=== PATIENT | female | born 1990 | race Caucasian/White ===

== ENCOUNTER 2019-05-22 15:12 | Inpatient (IN) | payer OTHER ==
[~2019-05-22] VITALS: Ht 152.4 cm; Wt 86.3 kg
[2019-05-22 15:33] VITALS: BP 130/71
[2019-05-22] MEDS ORDERED: PRENTAB9 PO (15:37)
[2019-05-22] MEDS ORDERED: TERBUTALINE SULFATE 1 MG/ML VIAL (J3105) SC ONE (15:45)
[2019-05-22] MEDS ORDERED: LACTATED RINGER'S 1000 ML IV ONE (15:45)
[2019-05-22] MEDS: LR 1,000 ML IV SCH ×2 (15:56→18:21)
[2019-05-22 16:27] LABS: HEMATOCRIT 34.7 % (36.0-47.0); HEMOGLOBIN 11.5 g/dl (12.0-15.5); MEAN CORPUSCULAR HEMOGLOBIN 29.9 pg (27.0-33.0); MEAN CORPUSCULAR HGB CONC 33.1 g/dl (32.0-36.5); MEAN CORPUSCULAR VOLUME 90.4 fl (80.0-96.0); PLATELET COUNT, AUTOMATED 196 10^3/uL (150-450); RED BLOOD COUNT 3.84 10^6/uL (4.00-5.40)
[2019-05-22 16:33] VITALS: BP 132/72
[2019-05-22] MEDS ORDERED: BICITRA 30ML SOLN UDC PO ONE (18:00)
[2019-05-22] MEDS ORDERED: ceFAZolin SOD 2 GM in IV 1 EA IV ONE (18:00)
[2019-05-22 18:54] VITALS: BP 143/73
[2019-05-22] MEDS ORDERED: MORPHINE PRES-FREE INJ 10 MG/10 ML VIAL (J2274) As Ordered ONE (19:37)
[2019-05-22] MEDS ORDERED: ONDANSETRON 4MG/2ML VIAL (J2405) As Ordered ONE (19:38)
[2019-05-22] MEDS ORDERED: OXYTOCIN INJ 10 UNITS/ML VIAL (J2590) As Ordered ONE (19:38)
[2019-05-22] MEDS ORDERED: dexameTHASONE 4 MG/ML 1ML VIAL (J1100) As Ordered ONE (19:38)
--- NOTE | 2019-05-22 20:04 | HPEPDOC ---
Obstetrical History & Physical General Date of Admission May 22, 2019 at 17:57 History of Present Illness Dede is a 29yo with SIUP at 38w1d by lmp c/w 9wk u/s who presented to L&D for ECV after being counseled at clinic appt earlier for persistent breech presentation. ECV failed, and patient desired to proceed with PLTCS today rather than coming back at a later date. Delivery is indicated at this gestational age for her because she has GHTN based on persistent mild range bp's. Recent pre-E labs were wnl, 24hr urine protein resulted "BARREL LOADER" because protein was so low. She has had no regular ctx/LOF/vaginal bleeding. She feels good movement. ECV procedure Note: Dr. Solorio and I attempted bedside ECV with both forward and backward roll after patient received 0.25mg SC Terbutaline and had reactive NST. She has posterior placenta and LEANNE is 13cm. Patient tolerated well, but fetus would not move past mid-abdomen and would immediately go back to original position when pressure was released. We attempted 3 times total, ultrasounding between each attempt to ensure adequate heart rate. After these attempts, I discussed with patient that we were unlikely to succeed and we then abandoned our attempts. I gave her and her time to consider having PLTCS today vs going home and returning next week, but she desired surgery today since she had already been NPO and had IV placed/labs drawn. Chief Complaint: section Information Provided By: Patient Care Care: Good Care Dating Final EDC: Jun 04, 2019 Final EDC by: LMP, 1st trimester (US) Antepartum Course Diagnos(e)s GHTN, overweight (starting BMI 27) with excessive weight gain (38lb), breech presentation Height (inches): 63 Pre- weight (lbs.): 152 Admission Weight (lbs.): 190 Change in Weight (lbs.): 38 Past Medical History Past Obstetrical History : Past Obstetrical History: Primgravida ACCESS SPECIALIST History: No pertinent history Past Medical History Medical History overweight (starting BMI 27) Surgical History: Humphrey teeth Family History Significant Family History: No pertinent family hx Social History Marital Status: Family situation: Spouse/partner home Psychosocial History: No pertinent psych hx * Smoker: non-smoker Alcohol: Denies Drugs: denies Imunizations Tdap status: current Influenza Status: current Allergies Coded Allergies: No Known Allergies (Unverified , 05/22/19) Medications Scheduled No.137/Iron/Folic Acd ( Vitamin Tablet) 1 Each Tablet, 1 TAB PO DAILY Physical Examination Physical Examination GENERAL: Alert and oriented times three. ABDOMEN: Gravid and non-tender to touch. FETUS: Is desire breech by TAUS EXTREMITIES: No edema of BLE Vital Signs/I&O Vital Signs Date Time Temp Pulse Resp B/P (MAP) Pulse Ox O2 Delivery O2 Flow Rate FiO2 05/22/19 18:54 98.7 73 20 143/73 (96) 99 Room Air Laboratory Data 24H LABS Laboratory Tests 2 05/22/19 16:11: Nucleated Red Blood Cells % (auto) 0.0, Syphilis Serology NONREACTIVE 05/22/19 18:11: Serology Scanned Report Hepatitis B Testing CBC/BMP Laboratory Tests 05/22/19 16:11 Pertinent Laboratoy Data Blood Type: O+ RBC Antibody Screen: Negative HIV: Negative Hepatitis B: Negative Hepatitis C: Unknown Rapid Plasma Reagin: Nonreactive Rubella: Immune Varicella: Immune Chlamydia/Gonorrhea: Negative Group B Streptococcus: Negative Cystic Fibrosis: Negative Glucose Tolerance Test: 127 Anatomy Ultrasound Ultrasound Date: Jan 22, 2019 Placenta Location: Posterior Normal Anatomy: Yes Placenta Previa: No Steroid Therapy Steroid Therapy: No Vaginal Examination Presentation: Breech presentation Assessment Heart Rate (FHR): 140 Variability: Moderate Accelerations: Positive Decelerations: None Tocometer Contractions: Yes Frequency: irregular Strength: palpated as mild Assessment/Plan Assessment Dede is a 29yo with SIUP at 38w1d by lmp c/w 9wk u/s with GHTN and persistent breech presentation having failed ECV, with PLTCS indicated. She has had a Cat I FHRT, irregular ctx. Normotensive to mild range bp's. course/PMhx significant for: GHTN, overweight (starting BMI 27) with excessive weight gain (38lb), breech presentation Plan Admit and orient. Counseled and consented for ECV and then PLTCS and blood transfusion. NPO prior to surgery Group B Streptococcus (GBS) negative Labs and intravenous (IV) per unit protocol. Lactated Ringers (LR): Bolus 500 mL, then at 125 mL/hr. Anceph 2g IV pre-op as well as PO Bicitra Arteaga catheter, clip-prep, SCDs all in the OR Anesthesia and nursing team all aware of plan and will proceed when the OR is ready MD Ana Winston Katrina D MD May 22, 2019 19:06
[2019-05-22] MEDS ORDERED: ONDANSETRON 4MG/2ML VIAL (J2405) IV PRN ×2 (20:38→22:45)
[2019-05-22] MEDS ORDERED: diphenhydrAMINE INJ 50MG/ML VIAL (J1200) IV PRN (20:38)
[2019-05-22] MEDS ORDERED: NALBUPHINE HCL 10 MG/ML AMP (J2300) IV PRN (20:38)
[2019-05-22] MEDS ORDERED: NALOXONE INJ 0.4 MG/1 ML VIAL (J2310) IV PRN ×2 (20:38)
[2019-05-22] MEDS ORDERED: METOCLOPRAMIDE INJ 10MG/2ML VIAL (J2765) IV PRN ×2 (20:38→22:45)
[2019-05-22] MEDS ORDERED: PHENYLephrine HCL 500 MCG/5 ML (100MCG/ML) SYRINGE (J2370) As Ordered ONE (20:46)
[2019-05-22] MEDS ORDERED: ePHEDrine SULFATE 25 MG/5 ML(5MG/ML) SYRINGE As Ordered ONE (20:46)
[2019-05-22 21:47] LABS: CORD GAS ABE A -2.9; CORD GAS O2 SAT A 29.1 %; CORD GAS PCO2 A 64.6 mmHg; CORD GAS PH A 7.222 UNITS; CORD GAS PO2 A 16.5 mmHg; CORD GAS SBC A 20.6 MEQ/L; CORD GAS TCO2 A 27.9 MEQ/L
[2019-05-22 21:48] LABS: CORD GAS ABE V -3.1; CORD GAS HCO3 V 22.3 MEQ/L; CORD GAS O2 SAT V 80.9 %; CORD GAS PCO2 V 41.2 mmHg; CORD GAS PH V 7.351 UNITS; CORD GAS SBC V 21.5 MEQ/L; CORD GAS TCO2 V 23.6 MEQ/L
[2019-05-22] MEDS ORDERED: LR 1,000 ML IV SCH (22:45)
[2019-05-22] MEDS ORDERED: PERCOCET 5MG/325MG TAB PO PRN (22:45)
[2019-05-22] MEDS ORDERED: fentaNYL 100 MCG/2 ML INJECTION (J3010) IV PRN (22:45)
[2019-05-22] MEDS ORDERED: PERCOCET 5MG/325MG TAB As Ordered ONE (23:35)
[2019-05-23] VITALS (9 sets, daily range): BP systolic 121–138; BP diastolic 67–89
[2019-05-23] MEDS ORDERED: MEASLES,MUMPS,RUBELLA VACCINE INJ (MMR-II) (90707) SC SCH (00:45)
[2019-05-23] MEDS ORDERED: PERCOCET 5MG/325MG TAB PO PRN (00:45)
[2019-05-23] MEDS ORDERED: miSOPROStol 200 MCG TAB (S0191) PR ONE (00:45)
[2019-05-23] MEDS ORDERED: RHOGAM 300 MCG (1500 IU) INJ (J2790) IM SCH (00:45)
[2019-05-23] MEDS: KETOROLAC 30 MG/ML VIAL (J1885) IV SCH ×5 (01:27→18:48)
[2019-05-23] MEDS: PRENATAL VITAMINS CHEWABLE TABLET PO SCH (08:21)
--- NOTE | 2019-05-23 12:32 | IPNPDOC ---
Progress Note Date of Service: May 23, 2019 Day#: 1 Progress Note POD/PPD 1 SUBJECT: Dede is a 29yo s/p uncomplicated PLTCS at 2109 on 05/22/2019 at 38w1d for persistent breech presentation after failed ECV in the setting of GHTN (having recent negative workup for pre-E), doing well day # 1. EBL was 500ml. She has been ambulating without dizziness/lightheadedness, recently had kirby catheter removed and she has been tolerating regular diet. Breast feeding well. Lochia is minimal. Pain so far is well controlled. No f/c/n/v/CP/SOB. OBJECTIVE: VITAL SIGNS: Within normal limits, afebrile. Alert and oriented times three. Abdomen: Fundus firm at U-2. Soft, appropriately tender to palpation with NO rebound/guarding. Pfannensteil incision is covered by clean/dry dressing. Extremities: SCDs on and functioning, no pain with palpation of calves UOP > 100ml/hr Labs: pre-op H/H: 11.5/34.7 ASSESSMENT: Dede is a 29yo s/p uncomplicated PLTCS at 2109 on 05/22/2019 at 38w1d for persistent breech presentation after failed ECV in the setting of GHTN (having recent negative workup for pre-E), doing well day # 1. Vitals within normal limits, afebrile, hemodynamically stable with no evidence of infection. No s/sx of pre-E. PLAN: 1. Routine and post-op care 2. Toradol (then Motrin) and prn percocet for pain. 3. Regular diet 4. Encourage breast feeding and ambulation as well as use of IS 5. CBC tomorrow morning 6. Kirby removed this morning, awaiting 4hr due to void 7. Vitals q4hr 8. Ok to shower later this evening, pt to remove outer dressing but leave steri strips in place 9. Dr. Degroot is aware that baby has not yet opened her left eye and has a "sunken" appearance- he will be evaluating the baby this morning Dr. Kath Perez MD VS, I&O, 24H, Fishbone Vital Signs/I&O Vital Signs Date Time Temp Pulse Resp B/P (MAP) Pulse Ox O2 Delivery O2 Flow Rate FiO2 05/23/19 10:00 98.3 73 20 128/67 (87) 98 Room Air I&O- Last 24 Hours up to 6 AM 05/23/19 06:00 Intake Total 2750 ml Output Total 2950 ml Balance -200 ml Laboratory Data 24H LABS Laboratory Tests 2 05/22/19 16:11: Nucleated Red Blood Cells % (auto) 0.0, Syphilis Serology NONREACTIVE 05/22/19 18:11: Serology Scanned Report Hepatitis B Testing 05/22/19 21:13: Cord Arterial Blood pH 7.222, Cord Arterial Blood PCO2 64.6, Cord Arterial Blood PO2 16.5, Cord Arterial Blood HCO3 26.0, Cord Arterial Blood Total CO2 27.9, Cord Arterial Blood Base Excess -2.9, Cord Arterial Base Excess (Standard 20.6, Cord Arterial Bld Oxygen Saturation 29.1, Cord Venous Blood pH 7.351, Cord Venous Blood PCO2 41.2, Cord Venous Blood PO2 38.0, Cord Venous Blood HCO3 22.3, Cord Venous Blood Total CO2 23.6, Cord Venous Base Excess (Actual) -3.1, Cord Venous Base Excess (Standard) 21.5, Cord Venous Blood Oxygen Saturation 80.9 CBC/BMP Laboratory Tests 05/22/19 16:11 Kath Perez MD May 23, 2019 12:32
[2019-05-23] MEDS: PERCOCET 5MG/325MG TAB PO PRN (18:06)
[2019-05-23] MEDS: IBUPROFEN 800 MG TAB PO SCH (20:52)
[2019-05-23] MEDS: DOCUSATE SODIUM 100 MG CAP PO SCH (23:57)
[2019-05-24] MEDS: PERCOCET 5MG/325MG TAB PO PRN ×4 (02:15→22:53)
[2019-05-24 02:24] VITALS: BP 129/78
[2019-05-24] MEDS: IBUPROFEN 800 MG TAB PO SCH ×3 (05:46→21:18)
[2019-05-24 05:59] VITALS: BP 133/81
[2019-05-24 07:48] LABS: HEMATOCRIT 34.4 % (36.0-47.0); HEMOGLOBIN 10.8 g/dl (12.0-15.5); MEAN CORPUSCULAR HEMOGLOBIN 29.3 pg (27.0-33.0); MEAN CORPUSCULAR HGB CONC 31.4 g/dl (32.0-36.5); MEAN CORPUSCULAR VOLUME 93.5 fl (80.0-96.0); PLATELET COUNT, AUTOMATED 202 10^3/uL (150-450); RED BLOOD COUNT 3.68 10^6/uL (4.00-5.40); WHITE BLOOD COUNT 13.4 10^3/uL (4.0-10.0)
[2019-05-24] MEDS: DOCUSATE SODIUM 100 MG CAP PO SCH ×2 (08:02→21:17)
[2019-05-24] MEDS: PRENATAL VITAMINS CHEWABLE TABLET PO SCH (08:03)
[2019-05-24 09:58] VITALS: BP 134/74
--- NOTE | 2019-05-24 10:10 | IPNPDOC ---
Text Note Date of Service The patient was seen on 05/24/19. NOTE Ms. Michelle is a 29 yo who is POD#2 s/p uncomplicated PLTCS on 22May2019 at ~2130 for breech presentation s/p failed ECV and GHTN at ~38 weeks gestation. No acute events over the last 24 hours. Ms. Michelle feels well this morning. Pain is well controlled, she is ambulating, voiding, and tolerating a regular diet. She has minimal lochia. Vitals - VSS, afebrile, normotensive, non tachycardic General - AAOX3, sitting up in chair and , NAD Abdomen - Fundus firm at U-2. No tenderness to palpation. Dressing in place over incision. Clean and dry. Extremities - No edema UO - appropriate Labs: Post op H/H stable Ms. Michelle is doing well and is making an appropriate / postoperative recovery. 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 Will order abdominal binder today and encourage IS use. Continue routine post op / care. Likely discharge home tomorrow. All questions answered. Mackenzie Pretty DO VS,Florentinobonpaco, I+O VS, Fishbone, I+O Laboratory Tests 05/24/19 07:27 Vital Signs Date Time Temp Pulse Resp B/P (MAP) Pulse Ox O2 Delivery O2 Flow Rate FiO2 05/24/19 09:58 98.4 73 18 134/74 (94) 98 05/24/19 03:02 Room Air I&O- Last 24 Hours up to 6 AM 05/24/19 06:00 Intake Total 1000 ml Output Total 600 ml Balance 400 ml MACKENZIE PRETTY DO May 24, 2019 10:10
[2019-05-24 14:00] VITALS: BP 134/72
[2019-05-24 17:51] VITALS: BP 131/72
[2019-05-25] MEDS: IBUPROFEN 800 MG TAB PO SCH ×2 (05:36→14:00)
[2019-05-25 06:00] VITALS: BP 142/93
[2019-05-25] MEDS: DOCUSATE SODIUM 100 MG CAP PO SCH (07:52)
[2019-05-25] MEDS: PRENATAL VITAMINS CHEWABLE TABLET PO SCH (07:52)
[2019-05-25] MEDS: PERCOCET 5MG/325MG TAB PO PRN (07:53)
--- NOTE | 2019-05-25 10:17 | IPNPDOC ---
Progress Note Date of Service: May 25, 2019 Day#: 3 Progress Note POD/PPD 3 SUBJECT: Dede is a 29yo s/p uncomplicated PLTCS at 2109 on 05/22/2019 at 38w1d for persistent breech presentation after failed ECV in the setting of GHTN (having recent negative workup for pre-E), doing well day # 3. EBL was 500ml. She has been ambulating without dizziness/lightheadedness, voiding spontaneously without issue, and she has been tolerating regular diet. Passing flatus, no BM yet. Breast feeding well. Lochia is minimal. Pain so far is well controlled. No f/c/n/v/CP/SOB. 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 OBJECTIVE: VITAL SIGNS: Within normal limits, afebrile. Alert and oriented times three. Abdomen: Fundus firm at U-2. Soft, appropriately tender to palpation with NO rebound/guarding. Pfannensteil incision has steri strips overlying, no erythema/induration/drainage. Extremities: no pain with palpation of calves, only trace edema of BLE Labs: pre-op H/H: 11.5/34.7 post-op H/H: 10.8/34.4 ASSESSMENT: Dede is a 29yo s/p uncomplicated PLTCS at 2109 on 05/22/2019 at 38w1d for persistent breech presentation after failed ECV in the setting of GHTN (having recent negative workup for pre-E), doing well day # 3. Vitals within normal limits, afebrile, hemodynamically stable with no evidence of infection. No s/sx of pre-E. PLAN: 1. discharge to home today 2. Motrin q8hr and prn percocet for pain. 3. Regular diet 4. Encouraged breast feeding and ambulation 5. Keep incision clean and dry, remove steri strips in 1 week 6. Vaginal rest 6 weeks and no heavy lifting, no driving while taking percocet 7. Discussed return precautions at length 8. Next visit 2 weeks post-op with Dr. Perez in [facility] Dr. Kath Perez MD VS, I&O, 24H, Fishbone Vital Signs/I&O Vital Signs Date Time Temp Pulse Resp B/P (MAP) Pulse Ox O2 Delivery O2 Flow Rate FiO2 05/25/19 08:57 18 05/25/19 06:00 97.2 72 142/93 (109) 05/24/19 17:51 98 05/24/19 03:02 Room Air I&O- Last 24 Hours up to 6 AM 05/25/19 06:00 Intake Total 1000 ml Balance 1000 ml Kath Perez MD May 25, 2019 10:17
[2019-05-25] MEDS ORDERED: IBUP80TA PO (10:20)
[2019-05-25] MEDS ORDERED: PERCOCET PO (10:20)
[2019-05-25] MEDS ORDERED: DOCU100C16 PO (10:20)
--- NOTE | 2019-05-25 10:25 | DS.PDOC ---
Discharge Summary General Date of Admission May 22, 2019 at 17:57 Date of Discharge May 25, 2019 Attending Physician: Kath Perez MD Discharge Summary PROCEDURES PERFORMED DURING STAY: external cephalic version (unsuccessful), primary low transverse section ADMITTING DIAGNOSES: 1. Breech presentation 2. Gestational hypertension at 38w1d DISCHARGE DIAGNOSES: 1. Persistent breech presentation after unsuccessful ECV, delivered via 2. Gestational hypertension at 38w1d COMPLICATIONS/CHIEF COMPLAINT: Primary C/S Unstable Lie. HISTORY OF PRESENT ILLNESS/HOSPITAL COURSE: Dede is a 29yo s/p uncomplicated PLTCS at 2110 on 05/22/2019 at 38w1d for persistent breech presentation after failed ECV in the setting of GHTN (having recent negative workup for pre-E), doing well day # 3. She has had a benign course. At time of discharge, vitals are within normal limits, she is afebrile, hemodynamically stable with no evidence of infection. No s/sx of pre-E. 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 DISCHARGE MEDICATIONS: Please see below. ALLERGIES: Please see below. PHYSICAL EXAMINATION ON DISCHARGE: VITAL SIGNS: Within normal limits, afebrile. Alert and oriented times three. Abdomen: Fundus firm at U-2. Soft, appropriately tender to palpation with NO rebound/guarding. Pfannensteil incision has steri strips overlying, no erythema/induration/drainage. Extremities: no pain with palpation of calves, only trace edema of BLE LABORATORY DATA: Please see below. pre-op H/H: 11.5/34.7 post-op H/H: 10.8/34.4 DISPOSITION: Home DISCHARGE PLAN/INSTRUCTIONS: 1. discharge to home today 2. Motrin q8hr and prn percocet for pain. 3. Regular diet 4. Encouraged breast feeding and ambulation 5. Keep incision clean and dry, remove steri strips in 1 week 6. Vaginal rest 6 weeks and no heavy lifting, no driving while taking percocet 7. Discussed return precautions at length 8. Next visit 2 weeks post-op with Dr. Perez in [facility] DISCHARGE CONDITION: Stable TIME SPENT ON DISCHARGE: Greater than [address] Kath Perez MD Vital Signs/I&Os Vital Signs Date Time Temp Pulse Resp B/P (MAP) Pulse Ox O2 Delivery O2 Flow Rate FiO2 05/25/19 08:57 18 05/25/19 06:00 97.2 72 142/93 (109) 05/24/19 17:51 98 05/24/19 03:02 Room Air I&O- Last 24 Hours up to 6 AM 05/25/19 06:00 Intake Total 1000 ml Balance 1000 ml Discharge Medications Scheduled Docusate Sodium (Docusate Sodium) 100 Mg Capsule, 100 MG PO BID Ibuprofen (Ibuprofen) 800 Mg Tablet, 800 MG PO Q8H No.137/Iron/Folic Acd ( Vitamin Tablet) 1 Each Tablet, 1 TAB PO DAILY, (Reported) Scheduled PRN Oxycodone/Acetaminophen (Oxycodone-Acetaminophen 5-325) 1 Each Tablet, 2 TAB PO Q6H PRN for SEVERE PAIN (PS 8-10) Allergies Coded Allergies: No Known Allergies (Unverified , 05/22/19) Kath Perez MD May 25, 2019 10:25
--- NOTE | 2019-05-25 15:30 | RO ---
DATE OF OPERATION: 05/22/2019 STAFF SURGEON: Dr. Kath Perez MD ELECTRICAL EQUIPMENT TESTER: Dr. Rao Solorio CLINICAL SERVICE: Obstetrics. INDICATIONS FOR OPERATION: Dede is a 29-year-old, G1 now, P1 0-0-1, who presented to clinic for persistent breech presentation for counseling on ECV versus section. She elected for a ECV, and so we proceeded with that later that evening but it was unsuccessful, and she was 38 weeks 1 day with a new diagnosis of gestational hypertension. So, we proceeded with primary low transverse section as mode of delivery. PREOPERATIVE DIAGNOSIS: 38 weeks 1 day with gestational hypertension having persistent breech presentation with failed ECV. POSTOPERATIVE DIAGNOSIS: 38 weeks 1 day with gestational hypertension having persistent breech presentation with failed ECV. MATERIAL FORWARDED TO THE LAB FOR EXAMINATION: None. DESCRIPTION OF FINDINGS: Female in double footling breech presentation. score 7 and 9. Weight 3540 grams. Normal appearing uterus and fallopian tubes. The right ovary was somewhat flat in appearance but the left ovary was normal in appearance. INFECTION CLASSIFICATION: 2 ESTIMATED BLOOD LOSS: 500 mL. IV FLUIDS: 1200 mL of lactated Ringer's and an additional 800 mL of lactated Ringer's with Pitocin. URINE OUTPUT: 100 mL. OPERATION PERFORMED: Primary low transverse section. DESCRIPTION OF OPERATION: After obtaining informed consent, the patient was taken to the operating room. She received spinal anesthesia and a Arteaga catheter and bilateral sequential compression devices were placed. She was prepped and draped in normal sterile fashion in the dorsal supine position with a left lateral tilt. Time-out was performed to confirm patient name, date of , indication and procedure. The team was in agreement. She received 2 grams of IV Ancef prior to the procedure. Epidural Spinal anesthesia was found to be adequate using an Allis clamp. A Pfannenstiel skin incision was made with a scalpel and carried through to the underlying layer of fascia. The fascia was incised in the midline and the incision was extended laterally with Keating scissors. Superior and inferior aspects of the fascial incision were grasped with Skyler clamps, elevated and the underlying rectus muscles were dissected off bluntly and sharply. The peritoneum was entered digitally and the rectus muscles were in the midline. Peritoneal incision was extended superiorly and inferiorly with good visualization of the bladder. A bladder blade was inserted and the vesicouterine peritoneum was identified, grasped with pickups and entered sharply with Metzenbaum scissors. The incision was extended laterally and the bladder flap was created digitally. Bladder blade was reinserted and the lower uterine segment was scored in a transverse fashion with a scalpel. The uterus was entered bluntly and the incision was extended with traction. Bladder blade was removed and at that time examination revealed that the was in double footling breech presentation, so the feet were grasped and the legs brought up out of the hysterotomy. The infant's pelvis was then elevated to level of the incision. The left followed by the right arm were delivered by the Lovset's maneuver and the head was delivered atraumatically using [id number] maneuver with fundal pressure. Nose and mouth were suctioned with bulb suction. The cord was clamped times two and cut. The was handed off to the awaiting nursing team. On inspection, the umbilical cord had a true knot. The placenta was removed using uterine massage and traction on the umbilical cord, and the uterus was exteriorized and cleared of all clot and debris. Uterine incision was repaired with #0 Vicryl suture in a running locking fashion. A second layer of #0 Monocryl was used to close the hysterotomy incision in imbricating fashion. Uterine incision was inspected and hemostasis was noted. Posterior cul-de-sac was irrigated and uterus returned to the abdomen. Gutters were cleared of all clot and hemostasis noted. Peritoneum was closed using #3-0 Vicryl suture in a running fashion. Fascia was reapproximated with #0 Vicryl suture in a running fashion. Yamile fascia was reapproximated using #3-0 Vicryl suture in a running fashion. The skin edges were reapproximated using three inverted interrupted stitches using #3-0 Vicryl suture followed by a running subcuticular stitch using #4-0 Monocryl suture. Incision was cleaned using a wet lap dried with a dry lap. Steri-Strips were applied in the usual fashion perpendicular to the Pfannenstiel incision. Two strips of Telfa were layered on top of Steri-Strips, followed by a dry sterile towel. Surgical drapes removed. Sterile towel was removed and a pressure dressing was applied over the entire surgical incision. Vagina was cleared of all blood clot without active bleeding noted. Fundus was firm at U minus 1 cm. All counts were correct times two. Procedure was without complications, and the patient tolerated the procedure well. She was taken to the recovery room on labor and delivery in stable condition.
== END 2019-05-25 14:50 | disposition home or self-care (01) | DRG 773 ==
LOC: M LDO 15:12 → M LDI 17:57 → M OBS 05-23 00:10
PROVIDERS: ADMIT Obstetrics & Gynecology; ATTEND Obstetrics & Gynecology
PROC: 10D00Z1 Extraction of Products of Conception, Low, Open Approach (ICD-10-PCS; principal; 2019-05-22 19:24)
DX: O32.8XX0 Maternal care for other malpresentation of fetus, not applicable or unspecified (principal); Z3A.38 38 weeks gestation of pregnancy; O13.4 Gestational [pregnancy-induced] hypertension without significant proteinuria, complicating childbirth; Z37.0 Single live birth

== ENCOUNTER → 2019-06-04 | Outpatient (CLI) | payer OTHER ==
[~2019-06-04] MED LIST: DOCU100C16 PO; IBUP80TA PO; PERCOCET PO; PRENTAB9 PO
[2019-06-04 17:03] LABS: HEMATOCRIT 40.1 % (36.0-47.0); HEMOGLOBIN 12.8 g/dl (12.0-15.5); MEAN CORPUSCULAR HEMOGLOBIN 29.5 pg (27.0-33.0); MEAN CORPUSCULAR HGB CONC 31.9 g/dl (32.0-36.5); MEAN CORPUSCULAR VOLUME 92.4 fl (80.0-96.0); PLATELET COUNT, AUTOMATED 331 10^3/uL (150-450); RED BLOOD COUNT 4.34 10^6/uL (4.00-5.40)
[2019-06-04 17:29] LABS: ALBUMIN 3.6 GM/DL (3.2-5.2); ALT/SGPT 48 U/L (12-78); BILIRUBIN,TOTAL 0.2 MG/DL (0.2-1.0); BLOOD UREA NITROGEN 14 MG/DL (7-18); CALCIUM LEVEL 9.2 MG/DL (8.5-10.1); CARBON DIOXIDE LEVEL 27 MEQ/L (21-32); CHLORIDE LEVEL 103 MEQ/L (98-107); CREATININE FOR GFR 0.65 MG/DL (0.55-1.30); GLOMERULAR FILTRATION RATE > 60.0 (>60); GLUCOSE, FASTING 72 MG/DL (70-100); POTASSIUM SERUM 4.4 MEQ/L (3.5-5.1); SODIUM LEVEL 138 MEQ/L (136-145); TOTAL PROTEIN 6.9 GM/DL (6.4-8.2)
== END ==
LOC: M LAB 14:58
PROVIDERS: ATTEND Obstetrics & Gynecology
DX: R03.0 Elevated blood-pressure reading, without diagnosis of hypertension (principal)